=== PATIENT | male | born 1985 | race Caucasian/White ===

== ENCOUNTER 2019-11-06 02:08 | Outpatient (CLI) | payer MEDICAID, SELFPAY ==
--- NOTE | 2019-11-06 08:41 | DI.RAD_ITS ---
EXAM: XR CHEST 2V PA LATERAL CLINICAL HISTORY: PUENTE, hypertensive, enlarged heart?, essential htn, I10 TECHNIQUE: 2D digital imaging was performed. COMPARISON: No exams were available for comparison FINDINGS: MEDIASTINUM: Normal. HEART: Normal. PULMONARY VASCULATURE: Normal. LUNGS: Clear. PLEURAL SPACE: No pleural effusion or pneumothorax. BONE:Within normal limits for the patient's age. OTHER FINDINGS:Normal. IMPRESSION: No acute pulmonary findings. DATA REPOSITORY: RADIATION DOSE DELIVERED:
[2019-11-06 08:48] LABS: HCT 47.9 % (40.0-50.0); HGB 16.1 g/dL (13.5-17.5); MCH 29.4 pg (27.0-33.0); MCHC 33.6 % (32.0-36.0); MCV 87.6 fL (80-95); MPV 10.4 fL (8.0-11.0); Platelet Count 222 10^3/uL (130-400); RBC 5.47 10^6/uL (4.36-5.78); RDW 12.5 % (11.8-14.1); RDW-SD 40.7 fL; WBC 5.67 10^3/uL (4.4-10.8)
[2019-11-06 09:39] LABS: ALT 45 U/L (16-63); AST 11 U/L (15-37); Albumin 4.3 g/dL (3.4-5.0); Alkaline Phosphatase 89 U/L (46-116); BUN 17 mg/dL (7-18); Bilirubin, Total 0.7 mg/dL (0.2-1.0); Calcium 9.1 mg/dL (8.5-10.1); Chloride 105 mmol/L (98-107); Cholesterol 188 mg/dL (<200); Glucose 100 mg/dL (74-106); HDL Cholesterol 34 mg/dL (40-60); Potassium 4.1 mmol/L (3.5-5.1); Sodium 142 mmol/L (136-145); Total Protein 7.3 g/dL (6.4-8.2); Triglyceride 421 mg/dL (<150)
[2019-11-06 09:56] LABS: LDL CHOLESTEROL 100 mg/dL (<100)
== END 2019-11-06 02:28 ==
PROVIDERS: PCP Family Medicine; Visit Provider Family Medicine
DX: I10 Essential (primary) hypertension (principal); R06.09 Other forms of dyspnea
CPT/HCPCS: 36415; 80053; 80061; 83721; 85027; 71046

== ENCOUNTER 2020-06-26 09:37 | Outpatient (CLI) | payer MEDICAID, SELFPAY ==
[2020-06-27 11:53] LABS: COVID-19 RT-PCR UVMMC Result Negative (Negative)
== END 2020-06-26 09:38 | disposition home or self-care (01) ==
PROVIDERS: PCP Family Medicine; Visit Provider Family Medicine
DX: Z20.822 Contact with and (suspected) exposure to COVID-19 (principal)
CPT/HCPCS: U0003

== ENCOUNTER 2021-12-06 12:21 | Day surgery (SDC) | payer MEDICAID, SELFPAY ==
--- NOTE | 2021-12-06 12:24 | W.PM.DSUDISC ---
Discharge Plan Disposition Patient Disposition: HOME Condition: Good Discharge Details Reason For Visit: Thrombosed hemorrhoid Admit Date/Time: 12/06/21 13:19 Admit Provider: Mckinley Kimball Attending Provider: Mckinley Kimball Primary Care Provider: Cheng Guthrie [facility] Course Hospital Course: Nayan is a 36-year-old male who presented to his primary care physician with a thrombosed external hemorrhoid. He came to the emergency department, and we discussed the surgical treatment of hemorrhoids. He provided informed consent. We moved to the operating room and did a hemorrhoidectomy. Home Meds and New Rx's Prescriptions: New oxycodone 5 mg tablet 5 mg PO Q8H PRN (Reason: pain) Qty: 9 0RF Preparation H Rapid Rlf-Lidocn 5-0.25-14.4-15 % cream 1 applic topical QID Qty: 28 0RF Rx Instructions: Apply thin coating to surgical area every 8 hours as needed for pain Continued tramadol 50 mg tablet 50 mg PO Q8H PRN (Reason: pain (scale score 4-6)) Qty: 10 1RF Rx Instructions: Trial (1) for pain; may take (2) for severe pain zinc oxide 25 % paste 1 applic topical 4-6XD PRN (Reason: skin irritation) Qty: 500 1RF Rx Instructions: Apply liberally to cover hemorrhoid pantoprazole 20 mg tablet,delayed release (DR/EC) 20 mg PO DAILY Qty: 90 3RF Discharge Instructions Instructions: Thrombosed Hemorrhoid (ED), Hemorrhoidectomy (DC) Additional Instructions: 1. Resume all of your medications. 2. Okay to use tylenol and ibuprofen over the counter as needed. 3. Use oxycodone as needed for pain. 4. If you have a bowel movement tonight, remove all of the bandages and shower with warm soapy water. If you do not have to move your bowels, leave the bandages in place until tomorrow morning. 5. No heavy lifting until I see you in the office. 6. Call the office (or go directly to the emergency room after hours) if you notice any of the following: Develop chills (warm to touch), or if you have a thermometer and your temperature is above 101 Difficulty breathing or difficultly swallowing Persistent vomiting 7. Call your physician if the site where your intravenous was started becomes red, swollen, painful, and warm to touch. 8. Some bleeding from the surgical site is to be expected. Rinse it off as necessary, and okay to use maxi pad type bandages to protect your clothing. 9. Purchase a sitz bath from any pharmacy. It is okay to use plain water, or water infused with Epsom salts if you prefer. Sitz bath should be used after each bowel movement, or as necessary if they provide comfort. 10. Use [id number] psyllium (Metamucil or Senokot) according to the package instructions to ensure soft bowel movements Referrals: Mckinley Kimball MD [ [facility] STAFF PHYSICIAN] - (7 to 10 days for routine follow-up) Activity:: Light lifting Equipment/Supplies:: Sitz bath Diet:: As Tolerated Discharge Orders Discharge Orders: Discharge Order (Routine); Ordered 12/06/21 Ordered By: Mckinley Kimball Discharge Data Discharge Comment: Okay to discharge when SHERRON criteria met DS: Diagnosis Discharge Diagnosis (1) Acute hemorrhoid: Status: Acute Asessment and Plan: Status post hemorrhoidectomy -Follow-up in the office 7 to 10 days -Apply Preparation H as needed for pain
[2021-12-06 12:44] VITALS: BP 147/93; PULSE 90; RESP 18; TEMP 37.2; O2SAT 98
--- NOTE | 2021-12-06 12:51 | ANES.PREOP_ITS ---
General Info Date of Service Date Performed: 12/06/21 Height: 5 ft 9 in Weight: 107.501 kg Body Mass Index (BMI): 34.9 Surgical Procedure: Excision anal abscess for thrombosed hemorrhoid. Meds Allergies and Home Medications Allergies Allergy/AdvReac Type Severity Reaction Status Date / Time Sulfa (Sulfonamide Allergy unknown Verified 12/05/21 16:22 Antibiotics) Home Medication Medication Instructions Recorded pantoprazole 20 mg tablet,delayed 20 mg PO DAILY #90 tabs 06/09/21 release tramadol 50 mg tablet 50 mg PO Q8H PRN pain (scale score 12/05/21 4-6) #10 tabs zinc oxide 25 % topical paste 1 applic topical 4-6XD PRN skin 12/05/21 irritation #500 grams PFSH Active Problems Active Problems: Problem Status Onset Code Acute hemorrhoid K64.9 Grade II internal hemorrhoids K64.1 Allergic rhinitis 05/21/15 J30.9 Attention-deficit hyperactivity disorder, unspecified type 01/24/15 F90.9 Depression with anxiety 08/23/14 F41.8 DESHAWN (obstructive sleep apnea) 09/18/15 G47.33 Obesity 08/23/14 E66.9 Right inguinal pain 08/23/14 R10.31 Vitamin D deficiency 08/23/14 E55.9 Physical deconditioning R53.81 Gastroesophageal reflux disease K21.9 Hypertriglyceridemia without hypercholesterolemia E78.1 Tension type headache G44.209 Medical History Medical History (Updated 12/06/21 @ 12:25 by Mckinley Kimball MD) ADHD (attention deficit hyperactivity disorder) Anxiety Depression Family history of prostate cancer Father, diagnosed in his 60s Surgical History Surgical History Repair of inguinal hernia (11/08/14) [facility] Tobacco Smoking/Tobacco Use Status: Never Passive smoking exposure: No Second hand exposure: No Alcohol Alcohol Intake: current Alcohol intake frequency: a few times a week Alcohol type: wine Substance Use Substance use: Never Substance use type: does not use Vital Signs and Lab Results Vital Signs Most Recent Vital Signs in EMR: Most Recent Vital Signs Temp Pulse Resp BP Pulse Ox 37.2 C 90 18 147/93 H 98 12/06/21 12:44 12/06/21 12:44 12/06/21 12:44 12/06/21 12:44 12/06/21 12:44 Lab Results Blood Type / Crossmatch: No Data to Display Complete Blood Count: No Data to Display Complete Metabolic Panel: No Data to Display Liver Function Panel: No Data to Display Coagulation Panel: No Data to Display Cardiac Panel: No Data to Display Arterial Blood Gas: No Data to Display Venous Blood Gas: No Data to Display Pancreas Panel: No Data to Display Thyroid Panel: No Data to Display Infectious Disease: No Data to Display Blood Cultures: No Data to Display Toxicology Panel: No Data to Display Anesthesia Assessment and Plan Anesthesia History Personal History: No History of Anesthesia Complications Family History: No Family History of Anesthesia Complications Exercise Tolerance Exercise Tolerance: Metabolic Equivalents>4 Pertinent Negatives Pertinent Negatives: No Symptoms of GERD, No Major Cardiovascular Symptoms or Complaints and No Major Pulmonary Symptoms or Complaints Cardiac & Pulmonary Exam Cardiac Exam: Normal S1/S2 Heart Sounds Pulmonary Exam: Clear Bilateral Breath Sounds Implantable Cardiac Device Does patient have a Pacemaker or an ICD?: No Airway Exam Known Difficult Airway: No Mallampati Class: 1 Mouth Opening: Normal (> 3cm) Thyromental Distance: Greater than 3 cm Neck Range of Motion: Full ROM Neck Circumference: Normal Teeth Condition: Normal Dentition ASA Classification ASA Score: ASA 2 Emergency Case?: No NPO Status NPO Status: NPO Clears >2 hours, Solids >8 hours Anesthesia Plan Resuscitation Status: Full Code Anesthesia Technique: MAC Anesthesia Airway Planned: Natural Airway Monitors Used: Standard Monitors
[2021-12-06 13:01] VITALS: BMI 34.9
--- NOTE | 2021-12-06 13:10 | W.ED.GENAD ---
Discharge Plan Disposition Patient Disposition: HOME Condition: Good Discharge Details Clinical Impression: Acute hemorrhoid Primary Care Provider: Cheng Guthrie ED Provider: Tanner Ayala Discharge Data Discharge Date/Time-TO BE ENTERED AT DEPARTURE: 12/06/21 13:17 Medical Decision Making Patient presenting to the emergency department at request of the general surgeons office due to having a thrombosed hemorrhoid. Surgeon already aware of this and presented to the emergency department with known plan of taking patient to the OR. Patient is in stable condition with no worrisome vital signs and no acute distress. Patient family OR for procedure and disposition. Patient in agreement with this plan. HPI General Mode of arrival: ambulatory. Date/Time Provider Initiated Documentation: 12/06/21 12:24. Limitations to Documentation: no limitations. Information obtained by: patient, RN notes reviewed and old records reviewed. History of Present Illness 36 year old M presents to the emergency department with the chief complaint of Thrombosed hemorrhoid here for general surgeon, described as moderate and similar to prior episodes, with intensity rated at 6. Quality is described as aching, and is localized to the buttocks. Patient reports no radiation. Patient started experiencing this day(s) and it has been constant. No relieving factors improve symptom(s), Patient notes no other symptoms.. Patient did receive the following treatments prior to arrival, none Related Data Home Medications Medication Instructions Recorded Confirmed pantoprazole 20 mg tablet,delayed 20 mg PO DAILY #90 tabs 06/09/21 12/05/21 release tramadol 50 mg tablet 50 mg PO Q8H PRN pain (scale score 12/05/21 12/05/21 4-6) #10 tabs zinc oxide 25 % topical paste 1 applic topical 4-6XD PRN skin 12/05/21 12/05/21 irritation #500 grams lidocaine 5 %-phenylephrine 0.25 1 applic topical QID pain #28 grams 12/06/21 %-glycern 14.4 %-petrolatm 15 % cream (Preparation H Rapid Relief-Lidocaine) oxycodone 5 mg tablet 5 mg PO Q8H PRN pain #9 tabs 12/06/21 Previous Rx's Medication Instructions Recorded pantoprazole 20 mg tablet,delayed 20 mg PO DAILY #90 tabs 06/09/21 release tramadol 50 mg tablet 50 mg PO Q8H PRN pain (scale score 12/05/21 4-6) #10 tabs zinc oxide 25 % topical paste 1 applic topical 4-6XD PRN skin 12/05/21 irritation #500 grams lidocaine 5 %-phenylephrine 0.25 1 applic topical QID pain #28 grams 12/06/21 %-glycern 14.4 %-petrolatm 15 % cream (Preparation H Rapid Relief-Lidocaine) oxycodone 5 mg tablet 5 mg PO Q8H PRN pain #9 tabs 12/06/21 Allergies Allergy/AdvReac Type Severity Reaction Status Date / Time Sulfa (Sulfonamide Allergy unknown Verified 12/05/21 16:22 Antibiotics) General Stated Complaint: GenMedical SHARRI: 3 Review of Systems Constitutional Constitutional: Denies chills and Denies fever(s) Cardiovascular Cardiovascular: Reports system reviewed and no additional complaints, except as documented Respiratory Respiratory: Reports system reviewed and no additional complaints, except as documented Gastrointestinal Gastrointestinal: Denies abdominal pain and Reports hematochezia Genitourinary Genitourinary: Reports system reviewed and no additional complaints, except as documented Integumentary/Breasts Skin/Breast: Denies unusual bruising PFSH All Active Problems Acute hemorrhoid (Acute) @ 8-9 o'clock, pink/dark pink with Hx bleeding Grade II internal hemorrhoids (Acute) 06/19/21- [facility] band ligation of the largest of his hemorrhoids. Allergic rhinitis (Acute 05/21/15) Attention-deficit hyperactivity disorder, unspecified type (Acute 01/24/15) Psych consult Dr[facility] Gilma Sullivan [facility] 01/2015 Depression with anxiety (Acute 08/23/14) DESHAWN (obstructive sleep apnea) (Acute 09/18/15) Obesity (Acute 08/23/14) Right inguinal pain (Acute 08/23/14) Vitamin D deficiency (Acute 08/23/14) Physical deconditioning (Acute) Gastroesophageal reflux disease (Chronic) Hypertriglyceridemia without hypercholesterolemia (Acute) Tension type headache (Acute) Medical History ADHD (attention deficit hyperactivity disorder) Anxiety Depression Family history of prostate cancer Father, diagnosed in his 60s Surgical History Repair of inguinal hernia (11/08/14) [facility]--DR. JOSE JAQUEZ RIGHT Family History Mother Essential hypertension Asthma Father Heart disease CHF Cancer Prostate cancer Grandmother Essential hypertension maternal Grandmother Diabetes paternal grandmother Other Family history of prostate cancer Social History Smoking/Tobacco Use Status: Never Second Hand Exposure: No Smoking risk assessment performed?: Yes Alcohol Intake: current Alcohol Intake frequency: a few times a week Alcohol type: wine Drug use: Never Substance use type: does not use Adopted: No Caregiver/Support person: No Foster care: No Household members: family Housing: house Number of Children: 0 Communication Needs: None Education Level: college Do you need help understanding health information?: Rarely 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 [employer] Pets and animals: Yes Pets and animals: cat(s) Sexually active: No Do you think of yourself as: Declined to answer Current gender identity: male What type of physical activity do you participate in: none Special radha needs: No Seatbelt use: always Helmet use: Yes Helmet use: always Drive intox or ride w/intox class a truck driver: No Working smoke detector in home: Yes Carbon monox detector in home: Yes Do you feel safe at home: Yes Exam Const General: cooperative, no acute distress and not ill appearing Orientation: alert, awake and oriented x3 Resp Effort & Inspection: normal respiratory effort, able to speak in complete sentences and no respiratory distress Auscultation: clear to auscultation bilaterally Cardio Rate: regular rate Rhythm: regular rhythm Heart Sounds: S1 normal and S2 normal Neuro General: patient alert, patient awake, patient oriented x3 and moves all extremities Course Vital Signs Vital signs: Vital Signs Temperature 37.2 C 12/06/21 12:44 Pulse 90 12/06/21 12:44 Respiratory Rate 18 12/06/21 12:44 Blood Pressure 147/93 H 12/06/21 12:44 Pulse Oximetry 98 12/06/21 12:44 Temperature 37.2 C 12/06/21 12:44 Temperature Source Temporal Artery Scan 12/06/21 12:44 Pulse 90 12/06/21 12:44 Respiratory Rate 18 12/06/21 12:44 Respiratory Effort Non-Labored 12/06/21 12:48 Blood Pressure 147/93 H 12/06/21 12:44 Blood Pressure Position Supine 12/06/21 12:44 Pulse Oximetry 98 12/06/21 12:44 Oxygen Delivery Method Room Air 12/06/21 12:44 Oxygen Flow Rate 0 12/06/21 12:44 Pain Level 6 12/06/21 12:44
[2021-12-06 13:16] VITALS: BP 138/76; PULSE 80; RESP 20; TEMP 36.8; O2SAT 97
[2021-12-06] MEDS: Lactated Ringers 1,000 ML 30 ML IV (13:18)
[2021-12-06 14:00] VITALS: BP 127/81; PULSE 86; RESP 18; TEMP 36.6; O2SAT 94
[2021-12-06 14:08] VITALS: BP 127/81; PULSE 86; RESP 18; TEMP 36.6; O2SAT 94
--- NOTE | 2021-12-06 14:12 | W.PM.OP ---
Date of service: 12/06/21 Time of Service: 14:12 Operative Note Operative Note DATE OF PROCEDURE: 12/06/21 PRE-OP DIAGNOSIS: Thrombosed external hemorrhoid POST-OP DIAGNOSIS: same PROCEDURE: Hemorrhoidectomy SURGEON: Mckinley Kimball ANESTHESIA TYPE: Local By Surgeon and MAC Refer to Anesthesia Record ESTIMATED BLOOD LOSS: 15 COMPLICATIONS: None Patient was transported to: floor Patient's condition: stable Indications: Nayan is a 36-year-old male with a thrombosed external hemorrhoid Procedure Description: After the initiation of monitored anesthetic care, I began by prepping and draping the perianal area in the usual fashion. Next, using local anesthetic with epinephrine, I established local field block around the perianal area. I then performed a digital rectal examination which was normal with the exception of the hemorrhoid. Next, I made an elliptical incision around the thrombosed hemorrhoid. Using a combination of Metzenbaum dissection and Bovie electrocautery, I excised the hemorrhoid in its entirety. The ends of the hemorrhoidal complex were controlled with electrocautery. There was no bleeding. I irrigated the surgical site. I was well superficial of the hemorrhoid complex. Next, I approximated the skin with interrupted chromic sutures. Fluffed bandages were applied, and mesh panties were used to hold the dressings in place.
--- NOTE | 2021-12-06 14:34 | W.ANESPOSTOP ---
Postoperative Evaluation Date, Time and Location Date Performed: 12/06/21 Time Performed: 14:35 Patient Location: Med/Surg Vital Signs Most Recent Imported Vital Signs: Most Recent Vital Signs Temp Pulse Resp BP Pulse Ox 36.6 C 86 18 127/81 94 12/06/21 14:08 12/06/21 14:08 12/06/21 14:08 12/06/21 14:08 12/06/21 14:08 Pain Score Most Recent Pain Score: Most Recent Pain Score Pain Level 1 12/06/21 14:08 Assessment Mental Status: Awake (Alert & Oriented to Patient Baseline) Airway and Respiratory Function: Patent airway with normal (patient baseline) respiratory exam Cardiovascular Function: Hemodynamically Stable Hydration Status: Adequately Hydrated Nausea & Vomiting: No Nausea or Vomiting Pain: Pain is tolerable per patient Peripheral Nerve Block: Patient did not receive a nerve block
[2021-12-06 14:48] VITALS: BP 144/88; PULSE 85; RESP 18; TEMP 36.5; O2SAT 95
== END 2021-12-06 14:56 | disposition home or self-care (01) ==
LOC: ER 13:10 → SUR 13:13 → MS 14:10
PROVIDERS: Emergency Provider Nurse Practitioner Family; PCP Family Medicine; Visit Provider Surgery
PROC: (CPT 46040; principal; 2021-12-06 12:55)
DX: K64.1 Second degree hemorrhoids (principal); F41.8 Other specified anxiety disorders; K21.9 Gastro-esophageal reflux disease without esophagitis; E78.1 Pure hyperglyceridemia; G57.33 Lesion of lateral popliteal nerve, bilateral lower limbs
CPT/HCPCS: 46320; 99285; 99284; G0378; J1885; J2250; J2405; J2704; J3010

== ENCOUNTER 2023-12-09 01:09 | Outpatient (CLI) | payer MEDICAID, SELFPAY ==
--- NOTE | 2023-12-09 16:01 | DI.CT_ITS ---
Exam(s) CT RENAL COLIC WO EXAM: CT RENAL COLIC WO CLINICAL HISTORY: Hematuria, L flank pain,n23. TECHNIQUE: Imaging Protocol: Axial computed tomography images with coronal and sagittal reformatted images were created and reviewed. COMPARISON: CT RENAL COLIC WO CONTRAST from 02/14/2015 FINDINGS: ABDOMEN: Lung Bases: Normal where visualized. Liver: There is decreased attenuation of the liver consistent with fatty infiltration. The liver hilario sures 19 cm long. No measurable mass. Gallbladder and biliary tract: No radiodense calculus or biliary ductal dilation. Pancreas: Normal density, no abnormal calcifications or inflammatory process. Spleen: Normal. Kidneys: Normal size, contour and axis.There is a 6 mm nonobstructing stone in the midpole of the rig ht kidney. No ureterolithiasis or hydronephrosis is present. No masses seen. Adrenal glands: No mass is seen. Lymph nodes: Within normal limits. Abdominal Aorta: Abdominal portion non-dilated. Minimal atherosclerotic calcification is present. PELVIS: Bladder:Symmetric distention, no gross wall thickening. Bowel: No obstruction or bowel wall thickening. Appendix is unremarkable. Peritoneal cavity: No ascites, collection or mesenteric inflammatory response. No free air. Reproductive organs: Unremarkable as visualized. Bones: Within normal limits. Soft Tissues: Within normal limits. IMPRESSION: 1. There is no evidence of left nephrolithiasis or hydronephrosis. 2. Right nephrolithiasis. No hydronephrosis. 3. No acute abdominal or pelvic process. 4. Hepatic steatosis and hepatomegaly. RADIATION DOSE DELIVERED: 628.51mGy.cm Total DLP DATA REPOSITORY: All CT scans at this facility are submitted to the National Radiology Data Registry (NRDR) Dose Index Registry (DIR) with the [employer] (ACR). RADIATION OPTIMIZATION: All CT scans at this facility use at least one of these dose optimization te chniques: automated exposure control; mA and/or kV adjustment per patient size (includes targeted exa ms where dose is matched to clinical indication); or iterative reconstruction.
== END 2023-12-09 01:29 ==
LOC: DI 01:09
PROVIDERS: PCP Family Medicine; Visit Provider Family Medicine
DX: K76.0 Fatty (change of) liver, not elsewhere classified (principal)
CPT/HCPCS: 74176

== ENCOUNTER 2023-12-24 02:04 | Outpatient (CLI) | payer MEDICAID, SELFPAY ==
[2023-12-24 08:47] LABS: ALT 42 U/L (16-63); AST 18 U/L (15-37); Albumin 4.1 g/dL (3.4-5.0); Alkaline Phosphatase 93 U/L (46-116); Anion Gap 12.4 mmol/L (3-11); BUN 14 mg/dL (7-18); CO2 25.6 mmol/L (21.0-32.0); CREATININE 1.1 mg/dL (0.70-1.30); Calcium 9.1 mg/dL (8.5-10.1); Calculated LDL 107 mg/dL (<100); Chloride 106 mmol/L (98-107); Cholesterol 201 mg/dL (<200); Estimated GFR 87.03 (mL/min/1.73m2); Glucose 95 mg/dL (74-106); HDL Cholesterol 37 mg/dL (40-60); Potassium 3.8 mmol/L (3.5-5.1); Sodium 144 mmol/L (136-145); TSH (W/Ref FT4) 1.59 uIU/mL (0.36-3.74); Total Protein 7.5 g/dL (6.4-8.2); Triglyceride 286 mg/dL (<150)
[2023-12-24 18:49] LABS: HBs Antibody, Qual Positive (See Note); HBs Antibody, Quant >1000.0 mIU/mL (See Note); Hepatitis B Core Antibody Negative (Negative); Hepatitis B surface Ag Negative (Negative); Hepatitis C Ab w Rflx HCV PCR Negative (Negative)
[2023-12-26 12:27] LABS: Ceruloplasmin 23.5 mg/dL
[2023-12-27 15:30] LABS: ANA Interpretation Negative (Negative)
[2023-12-27 15:53] LABS: Smooth Muscle Ab Screen Negative (Negative)
[2023-12-29 13:14] LABS: Mitochondrial Ab, M2 <0.1 U
== END 2023-12-24 02:05 | disposition home or self-care (01) ==
LOC: LBO 02:04
PROVIDERS: PCP Family Medicine; Referring Provider Family Medicine; Visit Provider Family Medicine
DX: K76.0 Fatty (change of) liver, not elsewhere classified (principal)
CPT/HCPCS: 36415; 80053; 80061; 82390; 83516; 86704; 86706; 86803; 87340; 84443; 86038; 86255

== ENCOUNTER 2024-05-23 00:17 | Outpatient (CLI) | payer MEDICAID, SELFPAY ==
--- NOTE | 2024-05-23 06:00 | DI.US_ITS ---
Exam(s) US ABDOMEN LIMITED EXAM: US ABDOMEN LIMITED CLINICAL HISTORY: RUQ pain, known fatty liver,k76.0 TECHNIQUE: Ultrasound abdomen performed using standard protocol. COMPARISON: CT CT RENAL COLIC WO from 12/09/2023 FINDINGS: LIVER: Mildly enlarged at 17.5 cm in length. Increased echogenicity and decreased through transmissi on consistent with moderate hepatic steatosis. No focal liver lesions are seen.. GALLBLADDER: No evidence of cholelithiasis. No evidence of wall thickening. No pericholecystic fluid identified. GUZMAN'S SIGN: Negative. BILIARY SYSTEM: No intrahepatic or extrahepatic biliary ductal dilation. RIGHT KIDNEY: Normal size. 6 millimeter stone is noted in the mid right kidney. No evidence of hydro nephrosis. No suspicious renal mass. No cyst identified. PANCREAS: Normal where visualized. ABDOMINAL AORTA AND IVC: Visualized portions normal caliber. ASCITES: None seen. IMPRESSION: Mildly enlarged liver with moderate hepatic steatosis. Normal appearing gallbladder. No biliary dilatation. 6 millimeter nonobstructing stone mid right kidney. DATA REPOSITORY:
== END 2024-05-23 00:37 ==
LOC: DI 00:17
PROVIDERS: PCP Family Medicine; Visit Provider Family Medicine
DX: K76.0 Fatty (change of) liver, not elsewhere classified (principal)
CPT/HCPCS: 76705